=== PATIENT | male | born 1980 | race Caucasian/White ===

== ENCOUNTER 2016-07-02 13:18 | Emergency (ER) | payer BC ==
[~2016-07-02] VITALS: Wt 108.9 kg
[~2016-07-02 13:18] MED LIST: AMOXICILLIN500 M2 PO
[2016-07-02] MEDS ORDERED: ASPIRIN CHILDRE81 MG PO (13:36)
[2016-07-02] MEDS ORDERED: CYCLOBENZAPRINE5 M3 PO (14:29)
== END 2016-07-02 14:40 | disposition home or self-care (01) ==
LOC: ED 13:18
DX: S39.012A Strain of muscle, fascia and tendon of lower back, initial encounter (principal); F17.200 Nicotine dependence, unspecified, uncomplicated; X58.XXXA Exposure to other specified factors, initial encounter; Y93.89 Activity, other specified; Y92.9 Unspecified place or not applicable; Y99.9 Unspecified external cause status

== ENCOUNTER 2017-08-25 20:18 | Emergency (ER) | payer OTHER ==
[~2017-08-25] VITALS: Ht 185.4 cm; Wt 117.9 kg
[~2017-08-25 20:18] MED LIST changes: +ASPIRIN CHILDRE81 MG PO; +CYCLOBENZAPRINE5 M3 PO
[2017-08-25] MEDS ORDERED: VIBRAMYCIN100 MG PO (20:32)
== END 2017-08-25 20:43 | disposition home or self-care (01) ==
LOC: ED 20:18
DX: S30.861A Insect bite (nonvenomous) of abdominal wall, initial encounter (principal); Z79.82 Long term (current) use of aspirin; W57.XXXA Bitten or stung by nonvenomous insect and other nonvenomous arthropods, initial encounter; Y93.89 Activity, other specified; Y92.89 Other specified places as the place of occurrence of the external cause; Y99.9 Unspecified external cause status